=== PATIENT | female | born 1985 | race Native Hawaiian/Other Pacific Islander ===

== ENCOUNTER 2018-05-24 23:53 | Emergency (ER) | payer SELFPAY ==
[~2018-05-24] VITALS: Ht 167.6 cm; Wt 124.7 kg
[~2018-05-24 23:53] MED LIST: MEDR5TAB PO; METF-370 PO; NAPR-223 PO; TRAM50TA2 PO
[2018-05-25 00:59] VITALS: BP 134/86
[2018-05-25] MEDS ORDERED: KETOROLAC TROMETH 60MG/2ML VIAL IM ONE (04:30)
[2018-05-25] MEDS ORDERED: methylPREDNISolone SOD SUCC 125 MG/2 ML VL IM ONE (04:30)
== END 2018-05-25 04:54 | disposition home or self-care (01) ==
LOC: ER 23:58
DX: M54.32 Sciatica, left side (principal)
CPT/HCPCS: 96372; 99283; J1885; J2930